=== PATIENT | female | born 1995 | race American Indian/Alaskan Native ===

== ENCOUNTER 2019-09-23 22:20 | Emergency (ER) | payer MEDICAID ==
[2019-09-23 23:15] LABS: Basophils % (Auto) 0.5 % (0.0-1.8); Eosinophils % (Auto) 0.3 % (0.0-4.3); Hematocrit 30.9 % (30.3-42.9); Hemoglobin 10.2 gm/dl (10.1-14.3); Lymphocytes # (Auto) 0.6 K/mm3 (1.2-5.4); Mean Corpuscular HGB Conc 33 % (30-34); Mean Corpuscular Volume 96 fl (79-97); Monocytes % (Auto) 14.7 % (0.0-7.3); Platelet Count 257 K/mm3 (140-440); Red Blood Count 3.23 M/mm3 (3.65-5.03); Red Cell Distribution Width 13.2 % (13.2-15.2)
[2019-09-23 23:39] LABS: Alanine Aminotransferase 22 units/L (7-56); Albumin 3.6 g/dL (3.9-5); BUN/Creatinine Ratio 12; Blood Urea Nitrogen 6 mg/dL (7-17); Calcium 8.7 mg/dL (8.4-10.2); Hemolysis Index 0
--- NOTE | 2019-09-24 00:55 | Vascular Lab Report ---
DUPLEX DOPPLER LOWER EXTREMITY VEINS, BILATERAL INDICATION / CLINICAL INFORMATION: Bilateral thigh pain; 25 weeks gestation. TECHNIQUE: Duplex doppler imaging was performed through the veins of both lower extremities using venous pedro mini and other maneuvers. COMPARISON: None available. FINDINGS: Right Common Femoral vein: Negative. Right Femoral vein: Negative. Right Popliteal vein: Popliteal vein was compressible with flow visualized. However echoes were seen in the popliteal vein with sluggish blood flow. Right Calf veins: Negative. Left Common Femoral vein: Negative. Left Femoral vein: Negative. Left Popliteal vein: Popliteal vein was compressible with flow visualized. Echoes were seen in the po pliteal vein with sluggish blood flow. Left Calf veins: Negative. Additional findings: None. IMPRESSION: 1. No sonographic evidence for DVT in either lower extremity. 2. Please note that there was sluggish blood flow noted in both popliteal veins. This could imply pot ential for impending DVT. Signer Name: Deena Gutierres MD Signed: 09/24/2019 12:51 AM Workstation Name: [id number]
--- NOTE | 2019-09-24 02:28 | Emergency Department Report ---
ED Extremity Problem HPI - General Chief complaint: Extremity Injury, Lower Stated complaint: KEG PAIN, 25 WEEKS Source: patient Mode of arrival: Ambulatory Limitations: No Limitations - History of Present Illness Initial comments: Patient is a A0 24-year-old -Tajik female who is approximately 25 weeks gestation who presents to the ED with acute onset persistent low back pain and bilateral thigh pain for the last 3 days. Patient denies fall, traumatic injury, heavy lifting, fever, chills, cough, dizziness, numbness and tingling or weakness of lower extremities bilaterally, vaginal bleeding or abdominal pain. MD Complaint: extremity pain (BILATERAL THIGH PAIN), other (Lower back pain) -: Sudden, days(s) (3) Location: lower extremity (bilateral thigh pain), other (lower back pain) History of Same: No -: Yes arthralgia, No fever, No associated dyspnea, No associated chest pain Radiation: none Severity scale (0 -10): 7 Quality: aching, sharp Consistency: constant Improves with: nothing Worsens with: weight bearing, walking, exertion, palpation Associated Symptoms: denies other symptoms, myalgias, arthralgias. denies: chest pain, shortness of breath, fever, rash, other - Related Data Previous Rx's Medication Instructions Recorded Last Taken Type Cyclobenzaprine [Flexeril] 10 mg PO QHS PRN #21 tablet 09/24/19 Unknown Rx Allergies Allergy/AdvReac Type Severity Reaction Status Date / Time No Known Allergies Allergy Unverified 09/23/19 20:08 ED Review of Systems ROS: Stated complaint: KEG PAIN, 25 WEEKS Other details as noted in HPI Constitutional: denies: chills, fever Eyes: denies: eye pain, eye discharge, vision change ENT: denies: ear pain, throat pain Respiratory: denies: cough, shortness of breath, wheezing Cardiovascular: denies: chest pain, palpitations Endocrine: no symptoms reported Gastrointestinal: denies: abdominal pain, nausea, vomiting, diarrhea, hematemesis Genitourinary: denies: urgency, dysuria, discharge Musculoskeletal: back pain (lower), arthralgia (Bilateral thigh pain). denies: joint swelling Skin: denies: rash, lesions Neurological: denies: headache, weakness, paresthesias Psychiatric: denies: anxiety, depression Hematological/Lymphatic: denies: easy bleeding, easy bruising ED Past Medical Hx - Past Medical History Previous Medical History?: Yes Hx Hypertension: Yes Additional medical history: Hypothyroid - Surgical History Past Surgical History?: Yes Additional Surgical History: eye, c-sec X 3 - Social History Smoking Status: Never Smoker Substance Use Type: None - Medications Home Medications: Home Medications Medication Instructions Recorded Confirmed Last Taken Type Cyclobenzaprine [Flexeril] 10 mg PO QHS PRN #21 tablet 09/24/19 Unknown Rx ED Physical Exam - General Limitations: No Limitations General appearance: alert, in no apparent distress - Head Head exam: Present: atraumatic, normocephalic, normal inspection - Eye Eye exam: Present: normal appearance, PERRL, EOMI Pupils: Present: normal accommodation - ENT ENT exam: Present: normal exam, normal orophraynx, mucous membranes moist, TM's normal bilaterally, normal external ear exam - Neck Neck exam: Present: normal inspection, full ROM. Absent: tenderness - Respiratory Respiratory exam: Present: normal lung sounds bilaterally. Absent: respiratory distress, wheezes, rales, chest wall tenderness, accessory muscle use, decreased breath sounds - Cardiovascular Cardiovascular Exam: Present: regular rate, normal rhythm, normal heart sounds. Absent: systolic murmur, diastolic murmur, rubs, gallop - GI/Abdominal GI/Abdominal exam: Present: soft, normal bowel sounds. Absent: tenderness, guarding, hyperactive bowel sounds - Extremities Exam Extremities exam: Present: normal inspection, full ROM, tenderness (Bilateral thigh tenderness to palpation diffusely), normal capillary refill. Absent: pedal edema, joint swelling, calf tenderness - Back Exam Back exam: Present: normal inspection, full ROM, tenderness (palpable lumbosacral paraspinal musculoskeletal tenderness), muscle spasm, paraspinal tenderness - Neurological Exam Neurological exam: Present: alert, oriented X3, CN II-XII intact, normal gait, reflexes normal - Psychiatric Psychiatric exam: Present: normal affect, normal mood - Skin Skin exam: Present: warm, dry, intact, normal color. Absent: rash ED Medical Decision Making - Lab Data Result diagrams: 09/23/19 23:02 09/23/19 23:02 - Radiology Data Radiology results: report reviewed, image reviewed Findings [facility] [address] [place] [address] Vascular Lab Report Signed Patient: GLADIS BEAVERS MR#: [id number] : 1995 Acct:[id number] Age/Sex: 24 / F ADM Date: 09/23/19 Loc: ED Attending Dr: Ordering Physician: EMMANUEL BAINS Date of Service: 09/23/19 Procedure(s): VL venous duplex LE BILAT Accession Number(s): [id number] cc: EMMANUEL BAINS DUPLEX DOPPLER LOWER EXTREMITY VEINS, BILATERAL INDICATION / CLINICAL INFORMATION: Bilateral thigh pain; 25 weeks gestation. TECHNIQUE: Duplex doppler imaging was performed through the veins of both lower extremities using venous compression and other maneuvers. COMPARISON: None available. FINDINGS: Right Common Femoral vein: Negative. Right Femoral vein: Negative. Right Popliteal vein: Popliteal vein was compressible with flow visualized. However echoes were seen in the popliteal vein with sluggish blood flow. Right Calf veins: Negative. Left Common Femoral vein: Negative. Left Femoral vein: Negative. Left Popliteal vein: Popliteal vein was compressible with flow visualized. Echoes were seen in the popliteal vein with sluggish blood flow. Left Calf veins: Negative. Additional findings: None. IMPRESSION: 1. No sonographic evidence for DVT in either lower extremity. 2. Please note that there was sluggish blood flow noted in both popliteal veins. This could imply potential for impending DVT. Signer Name: Deena Gutierres MD Signed: 09/24/2019 12:51 AM Workstation Name: [id number] Transcribed By: JR Dictated By: Deena Gutierres MD Electronically Authenticated By: Deena Gutierres MD Signed Date/Time: 09/24/19 0051 - Medical Decision Making This is a 24-year-old A0 -Tajik female who is approximately 25 weeks gestation and a presented to the ED with bilateral thigh pain and low back pain for 3 days. In the ED, patient is alert and oriented 3 and is not in distress. Patient had initially presented to the SAFETY SUPERVISOR floor but after being evaluated she was discharged and referred back to the ED for evaluation. In the ED: Patient is alert and oriented 3 and is not in distress. Patient had taken Tylenol 1 g by mouth 1 prior to arrival in the ED. Lab test results were reviewed and are all nonactionable. Bilateral Doppler ultrasound of bilateral lower extremities showed no sonographic evidence for DVT in either lower extremity. However it was noted during the Doppler ultrasound studies exam that there was sluggish blood flow in both popliteal veins. This could imply potential for impending DVT. These findings were discussed with the ED at tending physician Dr. Valdez was advised that the patient return to the ED within 72 hours for repeat of the Doppler ultrasound studies of lower extremities to rule out potential DVT. Patient was therefore discharged home and advised to take Tylenol as needed for pain with muscle relaxants and to return to the ED in 72 hours for repeat Doppler ultrasound studies of her lower extremities bilaterally. Patient was however advised to return to the ED immediately if symptoms get worse. Patient verbalized understanding of these instructions and promised to return to the ED as instructed. - Differential Diagnosis Muscle strain; Muscle spasm; DVT; UTI Critical care attestation.: If time is entered above; I have spent that time in minutes in the direct care of this critically ill patient, excluding procedure time. ED Disposition Clinical Impression: Muscle spasm of both lower legs, Spasm of muscle of lower back Muscle strain of thigh Qualifiers: Encounter type: initial encounter Laterality: unspecified laterality Qualified Code(s): S76.919A - Strain of unspecified muscles, fascia and tendons at thigh level, unspecified thigh, initial encounter Disposition: TO HOME OR SELFCARE Is pt being admited?: No Does the pt Need Aspirin: No Condition: Stable Instructions: Muscle Strain (ED), Arthralgia (ED), Muscle Spasm (ED), Low Back Strain (ED) Additional Instructions: Take pain medications and muscle relaxants as needed with food, drink plenty of fluids and follow-up with your VIDEO MACHINES MECHANIC physician in 7-10 days for reevaluation. Return to the ED in 72 hours for repeat of the Doppler ultrasound of the lower extremities to rule out DVT. Return to the ED immediately if symptoms get worse. Prescriptions: Cyclobenzaprine [Flexeril] 10 mg PO QHS PRN #21 tablet PRN Reason: Muscle Spasm Referrals: [facility] [Outside] - 3-5 Days Time of Disposition: 02:25 Print Language: MONGOLIAN
== END 2019-09-24 02:45 | disposition home or self-care (01) ==
LOC: ED 22:20
DX: O9A.212 Injury, poisoning and certain other consequences of external causes complicating pregnancy, second trimester (principal); S76.911A Strain of unspecified muscles, fascia and tendons at thigh level, right thigh, initial encounter; S76.912A Strain of unspecified muscles, fascia and tendons at thigh level, left thigh, initial encounter; M54.5 Low back pain; O16.2 Unspecified maternal hypertension, second trimester; Z3A.25 25 weeks gestation of pregnancy; Z79.899 Other long term (current) drug therapy; W22.8XXA Striking against or struck by other objects, initial encounter; Y93.89 Activity, other specified; Y92.89 Other specified places as the place of occurrence of the external cause; Y99.8 Other external cause status
CPT/HCPCS: 36415; 80053; 85025; 93970; 99284

== ENCOUNTER 2019-09-25 05:30 | Inpatient (IN) | payer MEDICAID ==
--- NOTE | 2019-09-25 09:58 | Event Note ---
Date: 09/25/19 patient presents c/o ? ROM, BRIGETTE 17, SSE negative pool, cervix 0/0/-4; firm midline. FHT's cat 1 however areas of ? tachycardia vs lost of contact with monitor. Also complains of cough sicne yesterday with ? fever. Lungs CTAB. O2 sat 100% RA. 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 She was here 09/23/2019; doppler results reveiwed that revealed sluggish popliteal flow (B) "possible impending DVT" 1) no evidence of ROM, fht;s overall reassuing, will continue montoring 2) CXR to evaluate cough, rapid flu testing, she declines vaccine 3) start Lovenox qd, will repeat dopples Friday as recommended.
--- NOTE | 2019-09-25 10:32 | XRay Report ---
CHEST 2 VIEWS INDICATION / CLINICAL INFORMATION: cough. COMPARISON: None available. FINDINGS: SUPPORT DEVICES: None. HEART / MEDIASTINUM: No significant abnormality. LUNGS / PLEURA: No significant pulmonary or pleural abnormality. No pneumothorax. ADDITIONAL FINDINGS: No significant additional findings. IMPRESSION: 1. No acute findings. Signer Name: Bernardo Mercedes MD Signed: 09/25/2019 10:28 AM Workstation Name: [id number]
[2019-09-25] MEDS: ENOXAPARIN 30 MG/0.3 ML INJ SUB-Q SCH (11:05)
--- NOTE | 2019-09-25 11:26 | Ultrasound Report ---
Limited OB ultrasound for BRIGETTE FINDINGS: BRIGETTE is normal at 17.2 cm. Signer Name: Luis Manuel Bledsoe MD Signed: 09/25/2019 11:21 AM Workstation Name: [id number]
[2019-09-25] MEDS ORDERED: DOCUSATE SODIUM 100 MG CAP PO PRN (12:20)
[2019-09-25] MEDS ORDERED: LACTATED RINGERS 1,000 ML IV SCH (13:00)
[2019-09-25] MEDS: OSELTAMIVIR 75 MG CAP PO SCH ×2 (13:08→23:52)
--- NOTE | 2019-09-25 13:40 | History and Physical Report ---
History of Present Illness Date of examination: 09/25/19 Chief complaint: Leaking fluid, cough History of present illness: She presented complaining of leaking fluid, her evaluation was negative for ROM however patient was noted to have a cough that started yesterday. She complained of intermittent SOB and her rapid flu was +, therefore as per ACOG/CDC guidelines she's admitted now for treatment. Of note, she was evaluated in ED 09/23/19 for (B) LLE aching and pain, her dopplers revealed sluggish popliteal flow (B) "possible impending DVT". Past History : 5 Term Births: 3 Premature Births: 0 Living Children: 3 Para: 3 Mult. Births: 0 Prev : 3 Prev. attempt? 0 Aborta: 1 Elect. Ab: 0 Spont. Ab: 1 Ectopics: 0 # 1 Delivery date: 2008 Weeks Gestation: 37 Delivery type: Delivery location: [place] Infant Sex: Male weight: 5-3 Comments: distress # 2 Delivery date: 2013 Weeks Gestation: 40 Delivery type: Delivery location: [place] Sex: Female weight: 6-3 Comments: Repeat # 3 Delivery date: 2014 Weeks Gestation: 40 Delivery type: Delivery location: [place] Sex: Female weight: 6-2 Comments: Repeat # 4 Delivery date: 2015 Weeks Gestation: 11 Delivery type: SAB Comments: D&C Past Medical History: Hypothyroidism - dx in childhood (stopped meds in childhood) Past Surgical History: C/S x 3 D/C x 1 Several cysts removed from left eye Past Medical History 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 of genital herpes: no Partner hx. of genital herpes: no Rash, Viral, or Febrile illness since last LMP? no Varicella/Chicken Pox Status: Previous Disease TB Risk: no Genetic History Congenital Heart Defect: Mom: no Dad: no Tsering Disease: Mom: no Dad: no Thalassemia Mom: no Dad: no Neural Tube Defect Mom: no Dad: no Down's Syndrome Mom: no Dad: no Mamadou-Sachs Mom: no Dad: no Sickle Cell Disease/Trait Mom: no Dad: no Hemophilia Mom: no Dad: no Muscular Dystrophy Mom: no Dad: no Cystic Fibrosis Mom: no Dad: no [place] Chorea Mom: no Dad: no Mental Retardation Mom: no Dad: no Fragile X Mom: no Dad: no Other Genetic/Chromosomal Disorder Mom: no Dad: no Child w/other defect Mom: no Dad: no Enviromental Exposures Xray Exposure: no Medication, drug, or alcohol use since LMP: no Chemical/Other Exposure: no Exposure to Cat Liter: no Hx of Parvovirus (Fifth Disease): no Occupational Exposure to Children: none Active Medications (reviewed today): ZOFRAN ODT 8 MG ORAL TABLET DISINTEGRATING (ONDANSETRON) 1 po q12hrs prn PLUS 27-1 MG ORAL TABLET ( VIT-FE FUMARATE-FA) 1 po Current Allergies (reviewed today): No known allergies Past History - Obstetrical History Expected Date of Delivery: 01/08/20 Actual Gestation: 25 Week(s) 0 Day(s) : 5 Medications and Allergies Allergies Allergy/AdvReac Type Severity Reaction Status Date / Time No Known Allergies Allergy Unverified 09/23/19 20:08 Home Medications Medication Instructions Recorded Confirmed Last Taken Type Cyclobenzaprine [Flexeril] 10 mg PO QHS PRN #21 tablet 09/24/19 Unknown Rx Active Meds: Active Medications Acetaminophen (Tylenol) 650 mg PO Q6H PRN PRN Reason: Pain MILD(1-3)/Fever >100.5/AGUERO Docusate Sodium (Colace) 100 mg PO Q12H PRN PRN Reason: Constipation Enoxaparin Sodium (Enoxaparin) 30 mg SUB-Q QDAY [facility] Last Admin: 09/25/19 11:05 Dose: 30 mg Documented by: Guaifenesin (Robitussin) 200 mg PO Q4H PRN PRN Reason: Cough Lactated Ringer's (Lactated Ringers) 1,000 mls @ 125 mls/hr IV DIRECT KEVIN Multivitamins/Iron/Calcium ( Vitamin) 1 each PO QDAY KEVIN Oseltamivir Phosphate (Tamiflu) 75 mg PO BID KEVIN Stop: 09/29/19 22:01 Last Admin: 09/25/19 13:08 Dose: 75 mg Documented by: Review of Systems All systems: negative Respiratory: cough Musculoskeletal: low back pain, muscle cramps - Vital Signs Vital signs: Vital Signs Pulse BP 99 H 114/71 09/25/19 05:57 09/25/19 05:57 Temp Pulse Resp BP Pulse Ox 99.2 F 106 H 113/70 100 09/25/19 11:55 09/25/19 13:08 09/25/19 08:35 09/25/19 13:08 - Physical Exam Breasts: Positive: deferred Cardiovascular: Regular rate Lungs: Positive: Clear to auscultation, Normal air movement Abdomen: Positive: soft. Negative: tenderness Genitourinary (Female): Positive: normal external genitalia, normal perenium Vulva: both: normal Vagina: Positive: normal moisture, other (no evidence of ROM) Extremities: Positive: normal - Obstetrical FHR: category 1 Uterine Contraction Monitor Mode: External Cervical Dilatation: 0 Cervical Effacement Percentage: 0 station: -4 Uterine Contraction Pattern: Absent Results Abnormal lab results 09/25/19 Range/Units 10:40 Influenza B (Rapid) Positive A (Negative) All other labs normal. Assessment and Plan - Patient Problems (1) 25 weeks gestation of Current Visit: Yes Status: Acute (2) Flu Current Visit: Yes Status: Acute Plan to address problem: Admit IVF Tamiflu ID consult (3) Hypercoagulable state Current Visit: Yes Status: Acute Plan to address problem: Will start lovenox until repeat dopplers as recommended. (4) Hypothyroid Current Visit: Yes Status: Acute Plan to address problem: TSH/ Free T4/T3 ordered
--- NOTE | 2019-09-25 14:14 | Progress Note ---
Assessment and Plan - Patient Problems (1) 25 weeks gestation of Current Visit: Yes Status: Acute (2) Flu Current Visit: Yes Status: Acute (3) Hypercoagulable state Current Visit: Yes Status: Acute (4) Hypothyroid Current Visit: Yes Status: Acute (5) Maternal care due to uterine scar from other previous surgery Current Visit: Yes Status: Acute Subjective - Subjective Date of service: 09/25/19 Interval history: She presented complaining of leaking fluid, her evaluation was negative for ROM however patient was noted to have a cough that started yesterday. She complained of intermittent SOB and her rapid flu was +, therefore as per ACOG/CDC guidelines she's admitted now for treatment. Of note, she was evaluated in ED 09/23/19 for (B) LLE aching and pain, her dopplers revealed sluggish popliteal flow (B) "possible impending DVT". Past History : 5 Term Births: 3 Premature Births: 0 Living Children: 3 Para: 3 Mult. Births: 0 Prev : 3 Prev. attempt? 0 Aborta: 1 Elect. Ab: 0 Spont. Ab: 1 Ectopics: 0 # 1 Delivery date: 2008 Weeks Gestation: 37 Delivery type: Delivery location: [place] Sex: Male weight: 5-3 Comments: distress # 2 Delivery date: 2013 Weeks Gestation: 40 Delivery type: Delivery location: [place] Sex: Female weight: 6-3 Comments: Repeat # 3 Delivery date: 2014 Weeks Gestation: 40 Delivery type: Delivery location: [place] Sex: Female weight: 6-2 Comments: Repeat # 4 Delivery date: 2015 Weeks Gestation: 11 Delivery type: SAB Comments: D&C Past Medical History: Hypothyroidism - dx in childhood (stopped meds in childhood) Past Surgical History: C/S x 3 D/C x 1 Several cysts removed from left eye Past Medical History 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 of genital herpes: no Partner hx. of genital herpes: no Rash, Viral, or Febrile illness since last LMP? no Varicella/Chicken Pox Status: Previous Disease TB Risk: no Genetic History Congenital Heart Defect: Mom: no Dad: no Tsering Disease: Mom: no Dad: no Thalassemia Mom: no Dad: no Neural Tube Defect Mom: no Dad: no Down's Syndrome Mom: no Dad: no Mamadou-Sachs Mom: no Dad: no Sickle Cell Disease/Trait Mom: no Dad: no Hemophilia Mom: no Dad: no Muscular Dystrophy Mom: no Dad: no Cystic Fibrosis Mom: no Dad: no [place] Chorea Mom: no Dad: no Mental Retardation Mom: no Dad: no Fragile X Mom: no Dad: no Other Genetic/Chromosomal Disorder Mom: no Dad: no Child w/other defect Mom: no Dad: no Enviromental Exposures Xray Exposure: no Medication, drug, or alcohol use since LMP: no Chemical/Other Exposure: no Exposure to Cat Liter: no Hx of Parvovirus (Fifth Disease): no Occupational Exposure to Children: none Active Medications (reviewed today): ZOFRAN ODT 8 MG ORAL TABLET DISINTEGRATING (ONDANSETRON) 1 po q12hrs prn PLUS 27-1 MG ORAL TABLET ( VIT-FE FUMARATE-FA) 1 po Current Allergies (reviewed today): No known allergies Objective - Vital Signs Vital Signs: Vital Signs - 12hr 09/25/19 09/25/19 09/25/19 05:57 08:10 08:21 Temperature 98.7 F Pulse Rate 99 H 88 Blood Pressure 114/71 O2 Sat by Pulse 98 Oximetry 09/25/19 09/25/19 09/25/19 08:35 09:02 09:07 Temperature Pulse Rate 90 94 H 93 H Blood Pressure 113/70 O2 Sat by Pulse 100 100 Oximetry 09/25/19 09/25/19 09/25/19 09:12 09:17 09:22 Temperature Pulse Rate 97 H 98 H 112 H Blood Pressure O2 Sat by Pulse 100 98 100 Oximetry 09/25/19 09/25/19 09/25/19 09:27 09:32 09:33 Temperature 98.0 F Pulse Rate 95 H 96 H Blood Pressure O2 Sat by Pulse 100 100 Oximetry 09/25/19 09/25/19 09/25/19 09:37 09:42 09:47 Temperature Pulse Rate 86 96 H 91 H Blood Pressure O2 Sat by Pulse 99 100 100 Oximetry 09/25/19 09/25/19 09/25/19 09:52 10:23 10:28 Temperature Pulse Rate 92 H 102 H 97 H Blood Pressure O2 Sat by Pulse 100 100 100 Oximetry 09/25/19 09/25/19 09/25/19 10:33 10:38 10:43 Temperature Pulse Rate 94 H 97 H 97 H Blood Pressure O2 Sat by Pulse 100 100 99 Oximetry 09/25/19 09/25/19 09/25/19 10:48 10:53 10:58 Temperature Pulse Rate 97 H 105 H 108 H Blood Pressure O2 Sat by Pulse 99 100 100 Oximetry 09/25/19 09/25/19 09/25/19 10:59 11:03 11:08 Temperature Pulse Rate 116 H 96 H 100 H Blood Pressure O2 Sat by Pulse 92 100 100 Oximetry 09/25/19 09/25/19 09/25/19 11:13 11:18 11:23 Temperature Pulse Rate 99 H 100 H 99 H Blood Pressure O2 Sat by Pulse 99 98 97 Oximetry 09/25/19 09/25/19 09/25/19 11:28 11:33 11:38 Temperature Pulse Rate 102 H 102 H 101 H Blood Pressure O2 Sat by Pulse 97 97 96 Oximetry 09/25/19 09/25/19 09/25/19 11:43 11:48 11:49 Temperature Pulse Rate 101 H 110 H 110 H Blood Pressure O2 Sat by Pulse 97 99 90 Oximetry 09/25/19 09/25/19 09/25/19 11:53 11:55 11:58 Temperature 99.2 F Pulse Rate 102 H 95 H Blood Pressure O2 Sat by Pulse 100 100 Oximetry 09/25/19 09/25/19 09/25/19 12:03 12:08 12:13 Temperature Pulse Rate 102 H 100 H 100 H Blood Pressure O2 Sat by Pulse 100 99 99 Oximetry 09/25/19 09/25/19 09/25/19 12:18 12:23 12:27 Temperature Pulse Rate 111 H 96 H 107 H Blood Pressure O2 Sat by Pulse 99 99 94 Oximetry 09/25/19 09/25/19 09/25/19 12:28 12:33 12:38 Temperature Pulse Rate 118 H 110 H 111 H Blood Pressure O2 Sat by Pulse 100 100 100 Oximetry 09/25/19 09/25/19 09/25/19 12:43 12:48 12:53 Temperature Pulse Rate 106 H 105 H 110 H Blood Pressure O2 Sat by Pulse 100 100 100 Oximetry 09/25/19 09/25/19 09/25/19 12:58 13:03 13:08 Temperature Pulse Rate 98 H 100 H 106 H Blood Pressure O2 Sat by Pulse 100 100 100 Oximetry 09/25/19 14:10 Temperature Pulse Rate 109 H Blood Pressure O2 Sat by Pulse 100 Oximetry - Labs Labs: Abnormal Labs 09/25/19 10:40 Influenza B (Rapid) Positive A Laboratory Results - last 24 hr 09/25/19 10:40 Influenza A (Rapid) Negative Influenza B (Rapid) Positive A
[2019-09-25] MEDS: ACETAMINOPHEN 325 MG TAB PO PRN ×2 (15:19→21:55)
[2019-09-25 16:40] LABS: Basophils % (Auto) 0.4 % (0.0-1.8); Eosinophils % (Auto) 0.4 % (0.0-4.3); Hematocrit 29.3 % (30.3-42.9); Lymphocytes # (Auto) 0.7 K/mm3 (1.2-5.4); Lymphocytes % (Auto) 12.5 % (13.4-35.0); Mean Corpuscular HGB Conc 34 % (30-34); Mean Corpuscular Volume 96 fl (79-97); Monocytes # (Auto) 0.5 K/mm3 (0.0-0.8); Monocytes % (Auto) 9.4 % (0.0-7.3); Platelet Count 231 K/mm3 (140-440); Red Blood Count 3.06 M/mm3 (3.65-5.03)
[2019-09-25 17:08] LABS: Alanine Aminotransferase 23 units/L (7-56); Albumin 3.3 g/dL (3.9-5); BUN/Creatinine Ratio 10; Blood Urea Nitrogen 5 mg/dL (7-17); Calcium 8.3 mg/dL (8.4-10.2); Hemolysis Index 16
[2019-09-25] MEDS: guaiFENesin 100 MG/5 ML ORAL LIQD PO PRN (20:51)
[2019-09-26] MEDS: guaiFENesin 100 MG/5 ML ORAL LIQD PO PRN ×4 (00:55→22:30)
[2019-09-26] MEDS: ACETAMINOPHEN 325 MG TAB PO PRN ×3 (04:35→17:20)
[2019-09-26] MEDS: PRENATAL VIT27-FE FUMARATE-FOLIC ACID VIT TAB PO SCH (10:45)
[2019-09-26] MEDS: OSELTAMIVIR 75 MG CAP PO SCH ×2 (10:47→22:31)
[2019-09-26] MEDS: ENOXAPARIN 30 MG/0.3 ML INJ SUB-Q SCH (10:48)
--- NOTE | 2019-09-26 12:41 | Consultation ---
History of Present Illness - Reason for Consult Consult date: 09/26/19 INFULENZA AND Requesting physician: IDA ROMERO - History of Present Illness 24 y/o female with 25 weeks admitted on 09/25/2019 due to 24h of leaking from vagina. Denies abdominal pain. Upon further interview she reports a dry cough for 48 hour and body aches as well as SOB. Her 13yo daughter is also sick. She also noted left leg pain. Denies rash, headache, N/V/D, urinary symptoms. On admission, temp 98.7, HR 99, R 18, O2 sat 98%. WBC 5.3. Creat 0.5. Influenza A rapid antigen was positive. CXR was negative for consolidations. Patient was started on tamiflu. ID consulted for further management. Review of Systems: Bold if positive, otherwise negative General: fevers, chills, body aches HEENT: visual disturbance, diplopia, eye pain Respiratory: cough, sputum, hemoptysis, shortness of breath Cardiovascular: chest pain, syncope Gastrointestinal: nausea, vomiting, diarrhea, abdominal pain Genitourinary: dysuria, hematuria, flank pain, leaking fluid Musculoskeletal: neck pain, back pain, joint pain, edema Neurologic: headaches, seizures Hematologic: easy bruising or bleeding Endocrine: night sweats, acute weight loss Skin: rash, jaundice, redness Psychiatric: suicidal, homicidal ideation Medications and Allergies Allergies Allergy/AdvReac Type Severity Reaction Status Date / Time No Known Allergies Allergy Unverified 09/23/19 20:08 Home Medications Medication Instructions Recorded Confirmed Last Taken Type Multivitamin Tablet 1 tab PO DAILY 09/25/19 09/25/19 09/24/19 10:00 History Active Meds: Active Medications Acetaminophen (Tylenol) 650 mg PO Q6H PRN PRN Reason: Pain MILD(1-3)/Fever >100.5/AGUERO Last Admin: 09/26/19 10:46 Dose: 650 mg Documented by: Docusate Sodium (Colace) 100 mg PO Q12H PRN PRN Reason: Constipation Enoxaparin Sodium (Enoxaparin) 30 mg SUB-Q QDAY KEVIN Last Admin: 09/26/19 10:48 Dose: 30 mg Documented by: Guaifenesin (Robitussin) 200 mg PO Q4H PRN PRN Reason: Cough Last Admin: 09/26/19 06:25 Dose: 200 mg Documented by: Lactated Ringer's (Lactated Ringers) 1,000 mls @ 42 mls/hr IV DIRECT KEVIN Last Admin: 09/26/19 10:45 Dose: 42 mls/hr Documented by: Multivitamins/Iron/Calcium ( Vitamin) 1 each PO QDAY KEVIN Last Admin: 09/26/19 10:45 Dose: 1 each Documented by: Oseltamivir Phosphate (Tamiflu) 75 mg PO BID KEVIN Stop: 09/29/19 22:01 Last Admin: 09/26/19 10:47 Dose: 75 mg Documented by: Physical Examination - Physical Exam Narrative exam: Constitutional: Alert, cooperative. No acute distress Head, Ears, Nose: Normocephalic, atraumatic. External ears, nose normal Eyes: Conjunctivae/corneas clear. No icterus. No ptosis. Neck: Supple, no meningeal signs Oral: dentition fair, no thrush Cardiovascular: S1, S2 normal. L permacath Respiratory: Good air entry, clear to auscultation bilaterally GI: Soft, non-tender; uterus Musculoskeletal: No pedal edema, no cyanosis. b/l leg wounds Skin: No rash or abscess Hem/Lymphatic: No palpable cervical or supraclavicular nodes. No lymphangitis Psych: Mood ok. Affect normal Neurological: Awake, alert, oriented. No gross abnormality - Constitutional Vitals: Vital Signs Temp Pulse Resp BP Pulse Ox 98.4 F 89 16 107/57 98 09/26/19 11:25 09/26/19 12:06 09/26/19 11:25 09/26/19 11:25 09/26/19 12:06 Temperature -Last 24 Hours Temperature 98.4 F Temperature 98.3 F Temperature 98.7 F Temperature 97.8 F Temperature 98.7 F Results - Labs CBC & Chem 7: 09/25/19 16:06 09/25/19 16:06 Labs: Abnormal lab results 09/25/19 09/25/19 09/25/19 Range/Units 16:06 16:06 16:06 RBC 3.06 L (3.65-5.03) M/mm3 Hgb 10.0 L (10.1-14.3) gm/dl Hct 29.3 L (30.3-42.9) % MCH 33 H (28-32) pg RDW 13.0 L (13.2-15.2) % Lymph % (Auto) 12.5 L (13.4-35.0) % [place] % (Auto) 9.4 H (0.0-7.3) % Lymph # 0.7 L (1.2-5.4) K/mm3 Seg Neutrophils % 77.3 H (40.0-70.0) % Sodium 135 L (137-145) mmol/L Potassium 3.5 L (3.6-5.0) mmol/L Carbon Dioxide 18 L (22-30) mmol/L BUN 5 L (7-17) mg/dL Creatinine 0.5 L (0.7-1.2) mg/dL Glucose 110 H (65-100) mg/dL Calcium 8.3 L (8.4-10.2) mg/dL Albumin 3.3 L (3.9-5) g/dL Free T4 0.72 L (0.76-1.46) ng/dL Assessment and Plan Cultures: none Assessment: 24 y/o female with 25 weeks admitted on 09/25/2019 due to 24h of leaking from vagina, dry cough for 48 hour and body aches as well as SOB: 1) Influenza and 25 weeks : CXR negative. Influenza A rapid antigen was positive. No fever, no leukocytosis, no hypoxemia. Risk for complicated influenza. 2) Left Leg pain: US no DVT 3) Leaking vaginal fluid ? no evidence of ROM per OB Recs: continue droplet isolation only check UA and urine culture f/u blood cultures agree with tamiflu 75 mg po BID for 5 days Will follow. Thanks for consultation Mary Nguyen MD Infectious Diseases [employer] [facility] ([facility]) M [phone] O [phone]
[2019-09-26 23:52] LABS: WBC,Urine < 1.0 /HPF (0.0-6.0)
[2019-09-26 23:55] LABS: Bilirubin,Urine NEG (Negative); Blood,Urine NEG (Negative); Color,Urine Straw (Yellow); Protein,Urine <15 mg/dL mg/dL (Negative); Urobilinogen,Urine < 2.0 mg/dL (<2.0)
--- NOTE | 2019-09-27 07:48 | Progress Note ---
Assessment and Plan Pt sleeping with HOB elevated No coughing at this time. IUP @ 25w2d with Type A flu and poss development of DVT. Pt is on droplet precaution and is also being seen by ID for consultation. Afebrile. Doppler of legs to be done this AM. Will consult with . Today is day 3 of Tamiflu. Subjective - Subjective Date of service: 09/27/19 (pt c/o aching all over and a stuffy nose) Patient reports: movement normal Objective - Vital Signs Vital Signs: Vital Signs - 12hr 09/26/19 09/26/19 09/26/19 19:44 19:45 19:49 Temperature Pulse Rate 94 H 95 H 85 Respiratory Rate Blood Pressure Blood Pressure [Right] O2 Sat by Pulse 99 93 100 Oximetry 09/26/19 09/26/19 09/26/19 19:54 19:59 20:04 Temperature Pulse Rate 88 76 85 Respiratory Rate Blood Pressure Blood Pressure [Right] O2 Sat by Pulse 99 99 100 Oximetry 09/26/19 09/26/19 09/26/19 20:09 20:14 20:19 Temperature Pulse Rate 84 82 78 Respiratory Rate Blood Pressure Blood Pressure [Right] O2 Sat by Pulse 100 100 100 Oximetry 09/26/19 09/26/19 09/26/19 20:24 20:26 20:29 Temperature Pulse Rate 71 76 79 Respiratory Rate Blood Pressure Blood Pressure [Right] O2 Sat by Pulse 100 92 100 Oximetry 09/26/19 09/26/19 09/26/19 20:34 20:39 20:44 Temperature Pulse Rate 84 82 78 Respiratory Rate Blood Pressure Blood Pressure [Right] O2 Sat by Pulse 100 100 100 Oximetry 09/26/19 09/26/19 09/26/19 20:49 20:54 20:59 Temperature Pulse Rate 85 79 92 H Respiratory Rate Blood Pressure Blood Pressure [Right] O2 Sat by Pulse 100 100 100 Oximetry 09/26/19 09/26/19 09/26/19 21:04 21:09 21:14 Temperature Pulse Rate 90 83 79 Respiratory Rate Blood Pressure Blood Pressure [Right] O2 Sat by Pulse 100 100 100 Oximetry 09/26/19 09/26/19 09/26/19 21:19 21:24 21:29 Temperature Pulse Rate 83 75 76 Respiratory Rate Blood Pressure Blood Pressure [Right] O2 Sat by Pulse 100 100 100 Oximetry 09/26/19 09/26/19 09/26/19 22:25 23:11 23:16 Temperature 98.4 F Pulse Rate 85 88 78 Respiratory 16 Rate Blood Pressure 99/52 Blood Pressure 99/52 [Right] O2 Sat by Pulse 100 96 98 Oximetry 09/26/19 09/26/19 09/26/19 23:21 23:26 23:31 Temperature Pulse Rate 88 85 83 Respiratory Rate Blood Pressure Blood Pressure [Right] O2 Sat by Pulse 96 97 99 Oximetry 09/26/19 09/26/19 09/26/19 23:36 23:41 23:46 Temperature Pulse Rate 81 80 82 Respiratory Rate Blood Pressure Blood Pressure [Right] O2 Sat by Pulse 98 97 99 Oximetry 09/26/19 09/27/19 09/27/19 23:51 01:16 05:09 Temperature 98.1 F Pulse Rate 83 82 81 Respiratory 16 Rate Blood Pressure 81/44 Blood Pressure 81/44 [Right] O2 Sat by Pulse 98 96 97 Oximetry 09/27/19 09/27/19 09/27/19 05:10 05:14 05:15 Temperature Pulse Rate 87 82 81 Respiratory Rate Blood Pressure 79/44 76/43 Blood Pressure [Right] O2 Sat by Pulse 97 Oximetry 09/27/19 09/27/19 09/27/19 05:16 05:19 05:24 Temperature Pulse Rate 79 82 83 Respiratory Rate Blood Pressure 78/45 Blood Pressure [Right] O2 Sat by Pulse 96 95 Oximetry 09/27/19 09/27/19 09/27/19 05:25 05:29 05:34 Temperature Pulse Rate 75 80 84 Respiratory Rate Blood Pressure Blood Pressure [Right] O2 Sat by Pulse 94 97 96 Oximetry 09/27/19 09/27/19 09/27/19 05:39 05:44 05:49 Temperature Pulse Rate 81 82 82 Respiratory Rate Blood Pressure Blood Pressure [Right] O2 Sat by Pulse 96 96 97 Oximetry 09/27/19 09/27/19 09/27/19 05:55 05:59 06:04 Temperature Pulse Rate 83 82 81 Respiratory Rate Blood Pressure Blood Pressure [Right] O2 Sat by Pulse 96 96 96 Oximetry 09/27/19 09/27/19 09/27/19 06:09 06:14 06:20 Temperature Pulse Rate 82 84 90 Respiratory Rate Blood Pressure Blood Pressure [Right] O2 Sat by Pulse 96 97 97 Oximetry 09/27/19 09/27/19 09/27/19 06:24 06:29 06:34 Temperature Pulse Rate 82 83 87 Respiratory Rate Blood Pressure Blood Pressure [Right] O2 Sat by Pulse 97 96 96 Oximetry 09/27/19 09/27/19 09/27/19 06:40 06:44 06:49 Temperature Pulse Rate 91 H 86 86 Respiratory Rate Blood Pressure Blood Pressure [Right] O2 Sat by Pulse 96 95 96 Oximetry 09/27/19 07:05 Temperature Pulse Rate 73 Respiratory Rate Blood Pressure 98/56 Blood Pressure [Right] O2 Sat by Pulse Oximetry - Exam Breasts: deferred Cardiovascular: Regular rate Abdomen: Present: normal appearance, soft. Absent: distention, tenderness Uterus: Present: normal FHR: auscultation normal, category 1 (for a 25 week fetus) Uterine Contraction Monitor Mode: External Uterine Contraction Pattern: Absent Uterine Tone Measurement Phase: Resting Extremities: normal Deep Tendon Reflex Grade: Normal +2 - Labs Labs: Abnormal Labs 09/25/19 09/25/19 09/25/19 10:40 16:06 16:06 RBC 3.06 L Hgb 10.0 L Hct 29.3 L MCH 33 H RDW 13.0 L Lymph % (Auto) 12.5 L [place] % (Auto) 9.4 H Lymph # 0.7 L Seg Neutrophils % 77.3 H Sodium 135 L Potassium 3.5 L Carbon Dioxide 18 L BUN 5 L Creatinine 0.5 L Glucose 110 H Calcium 8.3 L Albumin 3.3 L Free T4 Urine pH Influenza B (Rapid) Positive A 09/25/19 09/26/19 16:06 16:01 RBC Hgb Hct MCH RDW Lymph % (Auto) [place] % (Auto) Lymph # Seg Neutrophils % Sodium Potassium Carbon Dioxide BUN Creatinine Glucose Calcium Albumin Free T4 0.72 L Urine pH 8.0 H Influenza B (Rapid) Laboratory Results - last 24 hr 09/26/19 16:01 Urine Color Straw Urine Turbidity Clear Urine pH 8.0 H Ur Specific [place] 1.006 Urine Protein <15 mg/dl Urine Glucose (UA) Neg Urine Ketones Neg Urine Blood Neg Urine Nitrite Neg Ur Reducing Substances Not Reportable Urine Bilirubin Neg Urine Ictotest Not Reportable Urine Urobilinogen < 2.0 Ur Leukocyte Esterase Neg Urine WBC (Auto) < 1.0 Urine RBC (Auto) 2.0 U Epithel Cells (Auto) 1.0
[2019-09-27] MEDS: ENOXAPARIN 30 MG/0.3 ML INJ SUB-Q SCH (09:39)
[2019-09-27] MEDS: OSELTAMIVIR 75 MG CAP PO SCH (09:39)
[2019-09-27] MEDS: PRENATAL VIT27-FE FUMARATE-FOLIC ACID VIT TAB PO SCH (10:07)
[2019-09-27] MEDS: guaiFENesin 100 MG/5 ML ORAL LIQD PO PRN ×2 (10:07→13:53)
--- NOTE | 2019-09-27 10:54 | Event Note ---
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 Will cont treatment for the flu as well as for possible pending DVTs. The doppler's of the leg have been done but the report has not been read and is pending at this time. Will con't close observation for now.
[2019-09-27 11:48] VITALS: BP 98/54
--- NOTE | 2019-09-27 13:23 | Vascular Lab Report ---
DUPLEX DOPPLER LOWER EXTREMITY VEINS, BILATERAL INDICATION: leg pain (B). TECHNIQUE: Duplex doppler imaging was performed through the veins of both lower extremities using venous pedro mini and other maneuvers. COMPARISON: No relevant prior imaging study available. FINDINGS: Right Common femoral vein: Negative. Right Superficial femoral vein: Negative. Right Popliteal vein: Negative. Right Calf veins: Negative. Left Common femoral vein: Negative. Left Superficial femoral vein: Negative. Left Popliteal vein: Negative. Left Calf veins: Negative. Additional findings: None.. IMPRESSION: 1. No sonographic evidence for DVT in either lower extremity. Signer Name: Jason Graff MD Signed: 09/27/2019 1:19 PM Workstation Name: [id number]
--- NOTE | 2019-09-27 14:12 | Progress Note ---
Assessment and Plan Cultures: blood culture 09/26/2019 no growth today Assessment: 24 y/o female with 25 weeks admitted on 09/25/2019 due to 24h of leaking from vagina, dry cough for 48 hour and body aches as well as SOB: 1) Influenza and 25 weeks : CXR negative. Influenza A rapid antigen was positive. No fever, no leukocytosis, no hypoxemia. Risk for complicated influenza. 2) Left Leg pain: US no DVT 3) Leaking vaginal fluid ? no evidence of ROM per OB. UA not c/w UTI. Recs: continue droplet isolation f/u blood cultures continue tamiflu 75 mg po BID for 5 days Ok to d/c home from ID stand point. Educated about post-influenza pneumonia precautions. Will follow. Thanks for consultation Mary Nguyen MD Infectious Diseases [employer] [facility] ([facility]) M [phone] O [phone] Subjective Date of service: 09/27/19 Principal diagnosis: influenza and Interval history: Feels ok, more cough with green sputu. No fever. No abdominal pain. Objective - Exam Narrative Exam: Constitutional: Alert, cooperative. No acute distress Head, Ears, Nose: Normocephalic, atraumatic. External ears, nose normal Eyes: Conjunctivae/corneas clear. No icterus. No ptosis. Neck: Supple, no meningeal signs Oral: dentition fair, no thrush Cardiovascular: S1, S2 normal. L permacath Respiratory: Good air entry, patrick rhonchi scattered GI: Soft, non-tender; uterus Musculoskeletal: No pedal edema, no cyanosis. b/l leg wounds Skin: No rash or abscess Hem/Lymphatic: No palpable cervical or supraclavicular nodes. No lymphangitis Psych: Mood ok. Affect normal Neurological: Awake, alert, oriented. No gross abnormality - Constitutional Vitals: Vital Signs Temp Pulse Resp BP Pulse Ox 98.1 F 70 20 98/54 96 09/27/19 11:48 09/27/19 11:48 09/27/19 11:48 09/27/19 11:48 09/27/19 06:49 Temperature -Last 24 Hours Temperature 98.1 F Temperature 97.6 F Temperature 98.1 F Temperature 98.4 F Temperature 98.3 F Temperature 98.6 F - Labs CBC & Chem 7: 09/25/19 16:06 09/25/19 16:06 Labs: Abnormal lab results 09/26/19 Range/Units 16:01 Urine pH 8.0 H (5.0-7.0)
--- NOTE | 2019-09-27 15:36 | Discharge Summary ---
Providers - Providers Date of Admission: 09/25/19 14:58 Date of discharge: 09/27/19 (pt desires d/c; doppler scan negative) Attending physician: OLEG OLIVEROS 09/25/19 12:20 Consult to Physician [CONS] Routine Comment: Consulting Provider: URMILA GARCIA Physician Instructions: Reason For Exam: flu Primary care physician: OLEG OLIVEROS Hospitalization Reason for admission: flu; r/o DVT formation; Doppler Negative Condition: Fair Pertinent studies: vascular scan of legs; CXR; blood cultures Hospital course: Pt improving with treatment for flu will continue Tamiflu @ home f/u in office 1 week Disposition: DC-01 TO HOME OR SELFCARE - Discharge Diagnoses (1) Flu Status: Acute Comment: continue tx for flu @ home (2) Hypercoagulable state Status: Acute Comment: doppler of legs negative; pt to call with any pain in calves or legs Core Measure Documentation - Palliative Care Palliative Care/ Comfort Measures: Not Applicable - Core Measures Any of the following diagnoses?: none - VTE Discharge Requirements Deep Vein Thrombosis/Pulmonary Embolism Present on Admission: No Has pt received <5 days of overlap therapy or INR<2.0: No Anticoagulant overlap therapy prescribed at discharge: No Contraindication No Overlap Therapy order at DC: Not Indicated - Acute [place] Discharge Requirements Aspirin at discharge: No Reason for no aspirin on DC: Medical contraindication SOLITARIO/ARB for LVSD if EF <40%: Not Applicable Reason for no SOLITARIO/ARB: Medical contraindication Beta michael at discharge: No Reason for no beta michael on DC: Medical contraindication Statin for LDL = or >100 mg/dl on DC: Not Applicable Reason for no statin on DC: Medical contraindication Exam - Constitutional Vitals: Temp Pulse Resp BP Pulse Ox 98.1 F 70 20 98/54 96 09/27/19 11:48 09/27/19 11:48 09/27/19 11:48 09/27/19 11:48 09/27/19 06:49 General appearance: Present: no acute distress, well-nourished - EENT Eyes: Present: PERRL ENT: hearing intact, clear oral mucosa - Neck Neck: Present: supple, normal ROM - Respiratory Respiratory effort: normal Respiratory: bilateral: CTA - Cardiovascular Heart Sounds: Present: S1 & S2. Absent: rub, click - Extremities Extremities: pulses symmetrical, No edema Peripheral Pulses: within normal limits - Abdominal General gastrointestinal: Present: deferred Female genitourinary: Present: normal - Rectal Rectal Exam: deferred - Integumentary Integumentary: Present: clear, warm, dry - Musculoskeletal Musculoskeletal: gait normal, strength equal bilaterally - Psychiatric Psychiatric: appropriate mood/affect, intact judgment & insight - Neurologic Neurologic: CNII-XII intact, moves all extremities Plan Activity: advance as tolerated Weight Bearing Status: Weight Bear as Tolerated Diet: regular, advance as tolerated Care Plan Goals: complete Tamiflu po Follow up with: OLEG OLIVEROS MD [Primary Care Provider] - 7 Days (Call [phone] to schedule a appointment in 1 week)
== END 2019-09-27 17:00 | disposition home or self-care (01) | DRG 781 ==
LOC: TRG 05:30 → LD 14:58
PROVIDERS: ADMIT Obstetrics & Gynecology; ATTEND Obstetrics & Gynecology
DX: O99.512 Diseases of the respiratory system complicating pregnancy, second trimester (principal); O99.112 Other diseases of the blood and blood-forming organs and certain disorders involving the immune mechanism complicating pregnancy, second trimester; O99.282 Endocrine, nutritional and metabolic diseases complicating pregnancy, second trimester; J10.1 Influenza due to other identified influenza virus with other respiratory manifestations; D68.59 Other primary thrombophilia; E03.9 Hypothyroidism, unspecified; Z3A.25 25 weeks gestation of pregnancy
CPT/HCPCS: 36415; 71046; 76815; 80053; 81001; 84439; 84443; 84481; 85025; 87040; 87086; 87400; 93970; 99284; G0378; J1650; J7120

== ENCOUNTER 2019-12-15 18:33 | Outpatient (CLI) | payer MEDICAID ==
[2019-12-15] MEDS ORDERED: LACTATED RINGERS 1,000 ML ONE (19:28)
[2019-12-15] MEDS ORDERED: TERBUTALINE 1 MG/1 ML INJ SUB-Q ONE (20:15)
[2019-12-15] MEDS ORDERED: METOCLOPRAMIDE 10 MG/2 ML INJ IV ONE (20:27)
[2019-12-15] MEDS ORDERED: FAMOTIDINE 20 MG/2 ML INJ IV ONE (20:27)
[2019-12-15] MEDS ORDERED: BICITRA ORAL LIQD 30ML PO ONE (20:27)
[2019-12-15] MEDS ORDERED: LACTATED RINGERS 1,000 ML IV ONE (20:32)
[2019-12-15 20:33] LABS: Bacteria,Urine 1+ /HPF (Negative); Bilirubin,Urine NEG (Negative); Blood,Urine NEG (Negative); Color,Urine Colorless (Yellow); Protein,Urine <15 mg/dL mg/dL (Negative); Urobilinogen,Urine < 2.0 mg/dL (<2.0)
[2019-12-15 20:46] LABS: Basophils % (Auto) 0.3 % (0.0-1.8); Eosinophils % (Auto) 0.4 % (0.0-4.3); Hematocrit 31.8 % (30.3-42.9); Hemoglobin 10.3 gm/dl (10.1-14.3); Lymphocytes % (Auto) 21.8 % (13.4-35.0); Mean Corpuscular HGB Conc 32 % (30-34); Mean Corpuscular Volume 91 fl (79-97); Monocytes # (Auto) 0.5 K/mm3 (0.0-0.8); Monocytes % (Auto) 6.1 % (0.0-7.3); Platelet Count 266 K/mm3 (140-440); Red Blood Count 3.48 M/mm3 (3.65-5.03); Red Cell Distribution Width 13.5 % (13.2-15.2)
[2019-12-15] MEDS ORDERED: LACTATED RINGERS 1,000 ML IV SCH (21:00)
[2019-12-15] MEDS ORDERED: ceFAZolin/Water 2 GM/20 ML 2 GM/20 ML SYRINGE IV NR (21:00)
[2019-12-15] MEDS ORDERED: OXYTOCIN 20 UNIT/1000ML DRIP 20 UNITS/1,000 ML BAG IV SCH (21:00)
[2019-12-15 21:39] LABS: Amphetamine Screen,Urine PRESUMPTIVE NEGATIVE; Benzodiazepines Screen,Urine PRESUMPTIVE NEGATIVE; Cannabinoid Screen,Urine PRESUMPTIVE NEGATIVE; Cocaine Screen,Urine PRESUMPTIVE NEGATIVE; Methadone Screen,Urine PRESUMPTIVE NEGATIVE; Opiate Screen,Urine PRESUMPTIVE NEGATIVE
[2019-12-15 21:42] VITALS: BP 143/81
[2019-12-15] MEDS ORDERED: hydrOXYzine HCL 100 MG/2 ML INJ IM ONE (22:23)
--- NOTE | 2019-12-15 22:23 | Event Note ---
Date: 12/15/19 (Pt presented to Triage with c/o ctx) Pt was observed in Triage X 4 hours with no cervical chg. Her ctx spaced out from Q 4-8 to now Q 10-15 min with 2L IVFs and a single dose of Terb. Abdomen is soft, ctx very mild No VB,no LOF Reactive NST Cat 1 tracing. No evidence of abruption. Stressed importance of PN Care to pt her last visit in the office was 11-04-19. Pt aware she must be seen. She will call for an appt MARIA ISABEL. Consulted with Dr Fagan Pt cleared for d/c Given Vistaril 100mg IM SO is driving. Encouraged to come back if ctx return, LOF, VB.
== END 2019-12-15 22:45 | disposition home or self-care (01) ==
LOC: TRG 18:33
PROVIDERS: ATTEND Obstetrics & Gynecology
DX: O62.9 Abnormality of forces of labor, unspecified (principal); O10.913 Unspecified pre-existing hypertension complicating pregnancy, third trimester; O99.283 Endocrine, nutritional and metabolic diseases complicating pregnancy, third trimester; E03.9 Hypothyroidism, unspecified; Z3A.36 36 weeks gestation of pregnancy
CPT/HCPCS: 36415; 59025; 80307; 81001; 85025; 86592; 86850; 86900; 86901; 96360; 96361; 96372; J3105; J3410; J7120